=== PATIENT | male | born 1945 | race Two or more races ===

== ENCOUNTER 2018-03-26 22:03 | Outpatient (CLI) | END 2018-03-26 22:22 | disposition short-term general hospital (02) | LOC: AMBL 22:03 | PROVIDERS: ATTEND Family Medicine | DX: R42 Dizziness and giddiness (principal); R53.1 Weakness; R19.5 Other fecal abnormalities; R53.83 Other fatigue; R88.8 Abnormal findings in other body fluids and substances; N39.0 Urinary tract infection, site not specified; G20 Parkinson's disease; G35 Multiple sclerosis ==

== ENCOUNTER 2018-11-17 23:02 | Outpatient (CLI) | END 2018-11-17 23:22 | disposition short-term general hospital (02) | LOC: AMBL 23:02 | PROVIDERS: ATTEND Internal Medicine Geriatric Medicine | DX: R10.9 Unspecified abdominal pain (principal); R10.32 Left lower quadrant pain; M25.552 Pain in left hip; G20 Parkinson's disease; G35 Multiple sclerosis; W19.XXXA Unspecified fall, initial encounter ==